=== PATIENT | male | born 1990 | race Caucasian/White ===

== ENCOUNTER 2018-08-20 12:16 | Emergency (ER) | payer MEDICAID, OTHER ==
[~2018-08-20] VITALS: Ht 180.3 cm; Wt 76.6 kg
[2018-08-20 12:33] VITALS: BP 107/61
== END 2018-08-20 13:29 | disposition left against medical advice (07) ==
LOC: ED 13:23
DX: R10.84 Generalized abdominal pain (principal); Z53.21 Procedure and treatment not carried out due to patient leaving prior to being seen by health care provider